=== PATIENT | female | born 1955 | race American Indian/Alaskan Native ===

== ENCOUNTER 2016-11-30 12:38 | Inpatient (IN) | payer MEDICAID ==
[2016-11-30] MEDS ORDERED: Sodium Chloride 0.9% 1,000 ML IV STA ×2 (13:24→16:09)
--- NOTE | 2016-11-30 13:26 | ED PDOC ---
Arrival/HPI - General Chief Complaint: Fever Time Seen by Provider: 11/30/16 13:23 Historian: Patient - History of Present Illness Narrative History of Present Illness (Text): 11/30/16 13:23 60 year old female with a past medical history that includes hypertension, diabetes, CAD, stents, and asthma, sent by PMD with reported fever at the office , generalized weakness, nausea, and lower back pain. Patient states she was here 3 weeks ago for kidney infection. Patient reports fever of 101 at PMD's office. She states she is "hardly peeing." Denies dysuria or hematuria. She also reports cough for the past week. PMD: Dr. Johnson Past Medical History - Provider Review Nursing Documentation Reviewed: Yes - Infectious Disease Hx of Infectious Diseases: None - Cardiac Hx Cardiac Disorders: Yes Hx Hypertension: Yes - Pulmonary Hx Asthma: Yes - Neurological Hx Paralysis: No - HEENT Hx HEENT Disorder: No - Hematological/Oncological Hx Blood Transfusion Reaction: No - Integumentary Hx Dermatological Disorder: No - Musculoskeletal/Rheumatological Hx Musculoskeletal Disorders: Yes - Gastrointestinal Hx Gastrointestinal Disorders: Yes Hx Gall Bladder Disease: Yes Other/Comment: Colon CA - Genitourinary/Gynecological Other/Comment: HYSTERECTOMY R/T FIBROIDS - Psychiatric Hx Emotional Abuse: No Hx Physical Abuse: No Hx Substance Use: Yes (Marijuana;LAST USE 3 MONTHS AGO) - Surgical History Hx Hysterectomy: Yes Other/Comment: X2 - Anesthesia Hx Anesthesia Reactions: No Hx Malignant Hyperthermia: No - Suicidal Assessment Feels Threatened In Home Enviroment: No Family/Social History - Physician Review Nursing Documentation Reviewed: Yes Family/Social History: Unknown Family HX Smoking Status: Never Smoked Hx Alcohol Use: Yes (PAST ETOH/LAST USE 3 YRS AGO) Hx Substance Use: Yes (Marijuana;LAST USE 3 MONTHS AGO) Allergies/Home Meds Allergies/Adverse Reactions: Allergies fluoxetine HCl [From Prozac] Allergy (Severe, Verified 11/30/16 12:59) SWELLING Penicillins Allergy (Severe, Verified 11/30/16 12:59) SWELLING tomato Allergy (Intermediate, Verified 11/30/16 12:59) HIVES Home Medications: Home Meds Medication Instructions Recorded Confirmed Calcium Carbonate [Calcium] 600 mg PO DAILY 06/25/15 11/03/16 Albuterol Sulfate [Proair 90 mcg IH Q6H 12/02/15 10/14/16 Respiclick] Ibuprofen [Motrin Tab] 800 mg PO Q8H PRN 12/02/15 10/14/16 Ketotifen Fumarate [Itchy Eye] 1 drop OU BID 12/02/15 10/14/16 Lisinopril [Zestril] 10 mg PO DAILY 12/02/15 10/14/16 Polyethylene Glycol 3350 [Miralax] 17 gm PO PRN PRN 12/02/15 10/14/16 Tramadol HCl [Ultram] 50 mg PO TID PRN 12/02/15 11/03/16 Docusate [Colace] 100 mg PO DAILY 11/03/16 11/03/16 Loratadine [Claritin] 1 tab PO DAILY 11/03/16 11/03/16 Ondansetron [Zofran Tab] 1 tab PO TID PRN 11/03/16 11/03/16 Promethazine DM [Phenergan DM 1 ml PO TID 11/03/16 11/03/16 Syrup] traZODone [Desyrel] 250 mg PO HS 11/03/16 11/03/16 Review of Systems - Physician Review All systems were reviewed & negative as marked: Yes - Review of Systems Constitutional: Fevers (101 today at PMD's office), Other (Generalized weakness) Respiratory: Cough (x 1 week) Gastrointestinal: Nausea Genitourinary Female: absent: Dysuria, Hematuria Musculoskeletal: Back Pain (lower) Physical Exam - Physical Exam Narrative Physical Exam (Text): Constitutional: No acute distress. Head: Normocephalic. Atraumatic. Eyes: PERRL. ENT: Moist mucous membranes. Neck: Supple. Cardiovascular: Regular rate. Chest: No tenderness. Respiratory: Clear to auscultation bilaterally. GI: Soft. Nontender. Nondistended. Back: Bilateral CVA tenderness R>L Musculoskeletal: No tenderness or swelling of extremities. Skin: No rash. Neurologic: Alert, no focal deficit. Vital Signs Reviewed: Yes Vital Signs Temp Pulse Resp BP Pulse Ox 11/30/16 13:04 98 F 69 18 88/50 L 98 Temperature: Afebrile Blood Pressure: Hypotensive Pulse: Regular Respiratory Rate: Normal Appearance: Positive for: Well-Appearing, Non-Toxic, Comfortable Pain Distress: None Mental Status: Positive for: Alert and Oriented X 3 Medical Decision Making ED Course and Treatment: Impression: 60 year old female with a past medical history that includes hypertension, diabetes, CAD, stents, and asthma, sent by PMD with reported fever at the office, generalized weakness, nausea, and lower back pain. Differential Diagnosis included but are not limited to: UTI vs dehydration vs sepsis Plan: -- CT Abdomen/Pelvis, EKG, Chest X-ray -- IV fluids -- Labs -- Reassess and disposition Prior Visits: Notes and results from previous visits were reviewed. Patient last seen in the ED on 11/02/16 for altered mental status and admitted for AMS. Progress Notes: EKG shows NSR at [address]/T wave changes, interpreted by me. Chest X-ray H[employer]ide [employer] Captain: Dr. Oswald Bain IMPRESSION: No active disease. CT Abdomen/Pelvis Homicide Squad Captain: Dr. Oswald Bain IMPRESSION: There is diverticulosis of the descending and sigmoid colon. No evidence of diverticulitis 11/30/16 15:56 BP 108/63. Patient with acute renal insufficiency, requires IV hydration, consult placed for nephrology Dr. Gerber at Dr. Johnson's recommendation. - Lab Interpretations Lab Results: 11/30/16 14:00 11/30/16 14:00 Lab Results 11/30/16 15:13: Urine Color Yellow, Urine Appearance Clear, Urine pH 6.0, Ur Specific Metcalf <= 1.005, Urine Protein Negative, Urine Glucose (UA) Negative, Urine Ketones Negative, Urine Blood Negative, Urine Nitrate Negative, Urine Bilirubin Negative, Urine Urobilinogen 0.2, Ur Leukocyte Esterase Small H, Urine RBC Negative, Urine WBC 5 - 10, Ur Epithelial Cells 6 - 8, Urine Bacteria Trace 11/30/16 14:45: PT 10.9, INR 1.01, APTT 27.6, pO2 201 H, VBG pH 7.31 L, VBG pCO2 57.0, VBG HCO3 28.7 H, VBG Total CO2 30.4 H, VBG O2 Sat (Calc) 99.5 H, VBG Base Excess 1.2, VBG Potassium 5.7 H, Sodium 130.0 L, Chloride 101.0, Glucose 99 , Lactate 1.1, FiO2 21.0, Venous Blood Potassium 5.7 H 11/30/16 14:00: WBC 5.5, RBC 4.00, Hgb 11.8 L, Hct 36.4, MCV 91.0, MCH 29.5, MCHC 32.4, RDW 14.1, Plt Count 233, MPV 10.0, Gran % 57.1, Lymph % (Auto) 28.2, [place] % (Auto) 10.1 H, Eos % (Auto) 4.2, Baso % (Auto) 0.4, Gran # 3.16, Lymph # 1.6, [place] # 0.6, Eos # 0.2, Baso # 0.02, Sodium 131 L, Chloride 96 L, Potassium 5.3 H, Carbon Dioxide 27, Anion Gap 13, BUN 26 H, Creatinine 2.5 H, Est GFR ( Amer) 24, Est GFR (Non-Af Amer) 20, Random Glucose 92, Calcium 9.9, Total Bilirubin 0.6, AST 23, ALT 10, Alkaline Phosphatase 74, Total Protein 7.3 , Albumin 3.9, Globulin 3.4, Albumin/Globulin Ratio 1.1, Lipase 188 - RAD Interpretation Radiology Orders: 11/30/16 13:24 CHEST PORTABLE [RAD] Stat 11/30/16 13:25 ABD & PELVIS W/O PO OR IV CONT [CT] Stat - Medication Orders Current Medication Orders: Sodium Chloride (Sodium Chloride 0.9%) 1,000 mls @ 100 mls/hr IV .Q10H STA Stop: 12/01/16 02:08 Discontinued Medications Sodium Chloride (Sodium Chloride 0.9%) 1,000 mls @ 999 mls/hr IV .Q1H1M STA Stop: 11/30/16 14:24 Last Admin: 11/30/16 14:20 Dose: 999 MLS/HR eMAR Start Stop Document 11/30/16 14:20 RAMILA (Rec: 11/30/16 15:26 RAMILA [id number]) Intravenous Solution Start Date 11/30/16 Start Time 14:20 End Date 11/30/16 End time 16:00 Total Infusion Time 100 - Scribe Statement The provider has reviewed the documentation as recorded by the Gus Carlton Provider Scribe Attestation: All medical record entries made by the Rosalieibdoron were at my direction and personally dictated by me. I have reviewed the chart and agree that the record accurately reflects my personal performance of the history, physical exam, medical decision making, and the department course for this patient. I have also personally directed, reviewed, and agree with the discharge instructions and disposition. Disposition/Present on Arrival - Present on Arrival Any Indicators Present on Arrival: No History of DVT/PE: No History of Uncontrolled Diabetes: No Urinary Catheter: No History of Decub. Ulcer: No History Surgical Site Infection Following: None - Disposition Have Diagnosis and Disposition been Completed?: Yes Diagnosis: Acute renal insufficiency Disposition: HOSPITALIZED Disposition Time: 15:56 Patient Plan: Admission Patient Problems: Current Active Problems Problem Status Diagnosed Abdominal pain Acute Cholecystitis Acute Mesenteric panniculitis Acute Condition: GUARDED
--- NOTE | 2016-11-30 14:03 | RAD ---
HISTORY: cough, fever COMPARISON: 11/02/2016 FINDINGS: LUNGS: No active pulmonary disease. PLEURA: No significant pleural effusion identified, no pneumothorax apparent. CARDIOVASCULAR: Normal. OSSEOUS STRUCTURES: No significant abnormalities. VISUALIZED UPPER ABDOMEN: Normal. OTHER FINDINGS: Aortic tortuosity IMPRESSION: No active disease.
[2016-11-30 14:10] LABS: ADD MANUAL DIFF? NO
[2016-11-30 14:13] LABS: BASO # 0.02 K/mm3 (0.0-2.0); BASO % 0.4 % (0.0-3.0); EOS # 0.2 (0.0-0.7); EOS % 4.2 % (1.5-5.0); GRAN # 3.16 (1.4-6.5); GRAN % 57.1 % (50.0-68.0); HEMATOCRIT 36.4 % (36.0-48.0); LYMPH # 1.6 (1.2-3.4); LYMPH % 28.2 % (22.0-35.0); MEAN CORPUSCULAR HEMOGLOBIN 29.5 pg (25.0-35.0); MEAN CORPUSCULAR HGB CONC 32.4 g/dl (31.0-37.0); MONO # 0.6 (0.1-0.6); MONO % 10.1 % (1.0-6.0); PLATELET COUNT 233 10^3/uL (120.0-450.0); RED CELL DISTRIBUTION WIDTH 14.1 % (11.5-14.5); WHITE BLOOD COUNT 5.5 10^3/ul (4.5-11.0)
[2016-11-30 14:23] LABS: ALB/GLOB RATIO 1.1 (1.1-1.8); BILIRUBIN,TOTAL 0.6 mg/dL (0.2-1.3); CALCIUM 9.9 mg/dL (8.4-10.5); POTASSIUM 5.3 mmol/L (3.6-5.0); TOTAL PROTEIN 7.3 g/dL (5.8-8.3)
[2016-11-30 15:03] LABS: VENOUS BLOOD GAS BASE EXCESS 1.2 mmol/L (0.0-2.0); VENOUS BLOOD PH 7.31 (7.32-7.43)
[2016-11-30 15:24] LABS: URINE BILIRUBIN NEGATIVE (NEGATIVE); URINE BLOOD NEGATIVE (NEGATIVE); URINE GLUCOSE (UA) NEGATIVE (NEGATIVE); URINE KETONE NEGATIVE (NEGATIVE); URINE LEUKOCYTE ESTERASE SMALL Leu/uL (NEGATIVE); URINE PROTEIN NEGATIVE mg/dL (<30 mg/dL); URINE UROBILINOGEN 0.2 E.U./dL (<1 E.U./dL)
[2016-11-30 15:25] LABS: INR 1.01 (0.93-1.08); PARTIAL THROMBOPLASTIN TIME 27.6 Seconds (23.7-30.8)
[2016-11-30 15:25] LABS: URINE APPEARANCE CLEAR (CLEAR); URINE COLOR YELLOW (YELLOW)
[2016-11-30 15:28] LABS: URINE BACTERIA TRACE (NEG); URINE RBC NEGATIVE /hpf (0-2)
--- NOTE | 2016-11-30 15:58 | CT ---
PROCEDURE: CT Abdomen and Pelvis without intravenous contrast HISTORY: flank pain, fever COMPARISON: None. TECHNIQUE: Without contrast. Contrast Dose: Radiation dose: Total exam DLP = 742 mGy-cm. FINDINGS: LOWER THORAX: Unremarkable. LIVER: Unremarkable. No gross lesion or ductal dilatation. GALLBLADDER AND BILE DUCTS: Unremarkable. PANCREAS: Unremarkable. No gross lesion or ductal dilatation. SPLEEN: Unremarkable. ADRENALS: Unremarkable. No mass. KIDNEYS AND URETERS: Unremarkable. No hydronephrosis. No solid mass. VASCULATURE: Unremarkable. No aortic aneurysm. BOWEL: Unremarkable. No obstruction. No gross mural thickening. There is diverticulosis in the descending and sigmoid colon without diverticulitis APPENDIX: Unremarkable. Normal appendix. PERITONEUM: Unremarkable. No free fluid. No free air. LYMPH NODES: Unremarkable. No enlarged lymph nodes. BLADDER: Unremarkable. REPRODUCTIVE: Unremarkable. BONES: No acute fracture. OTHER FINDINGS: None. IMPRESSION: There is diverticulosis of the descending and sigmoid colon. No evidence of diverticulitis
[2016-11-30] MEDS ORDERED: Morphine 2 mg/ml ISec IVP STA (16:56)
--- NOTE | 2016-11-30 17:23 | CARD ---
APPROVED REPORT EKG Measurement Heart [id number] <Conclusion> Normal sinus rhythm Normal ECG
[2016-11-30] MEDS ORDERED: Morphine 2 mg/ml ISec IVP PRN (18:03)
[2016-11-30] MEDS ORDERED: Sod Polystyrene Sulf 15 gm/60 ml Oral Susp PO ONE (19:08)
[2016-11-30] MEDS ORDERED: Promethazine DM 6.25 mg-15 mg/5 ml Syrup PO PRN (20:11)
[2016-11-30] MEDS: Insulin Reg-MEDIUM-Coverage SC SCH (22:06)
[2016-11-30 22:35] VITALS: BMI 30.6
[2016-11-30] MEDS ORDERED: Influenza Vaccine 45 MCG/0.5 ml IM ONE (22:35)
[2016-11-30] MEDS ORDERED: Pneumococcal 23-Valent Vaccine IM ONE (22:35)
[2016-11-30] MEDS ORDERED: Albuterol 0.083% Inhal Sol (2.5 mg/3 mL) UD IH PRN (23:30)
[2016-12-01 07:27] LABS: ADD MANUAL DIFF? NO
[2016-12-01 07:31] LABS: BASO # 0.02 K/mm3 (0.0-2.0); BASO % 0.4 % (0.0-3.0); EOS # 0.3 (0.0-0.7); EOS % 6.3 % (1.5-5.0); GRAN # 1.92 (1.4-6.5); GRAN % 37.6 % (50.0-68.0); HEMATOCRIT 33.3 % (36.0-48.0); LYMPH # 2.4 (1.2-3.4); LYMPH % 47.1 % (22.0-35.0); MEAN CELL VOLUME 91.7 fL (80.0-105.0); MEAN CORPUSCULAR HEMOGLOBIN 29.5 pg (25.0-35.0); MEAN CORPUSCULAR HGB CONC 32.1 g/dl (31.0-37.0); MEAN PLATELET VOLUME 9.7 fl (7.0-11.0); MONO # 0.4 (0.1-0.6); MONO % 8.6 % (1.0-6.0); PLATELET COUNT 212 10^3/uL (120.0-450.0); RED CELL DISTRIBUTION WIDTH 14.2 % (11.5-14.5); WHITE BLOOD COUNT 5.1 10^3/ul (4.5-11.0)
[2016-12-01 07:47] LABS: BILIRUBIN,TOTAL 0.4 mg/dL (0.2-1.3); CALCIUM 8.8 mg/dL (8.4-10.5); POTASSIUM 4.8 mmol/L (3.6-5.0)
[2016-12-01] MEDS ORDERED: Sodium Chloride 0.9% 1,000 ML IV SCH ×2 (07:51→16:32)
--- NOTE | 2016-12-01 08:02 | HP ---
I saw the patient in my office today. She was brought down by help of her son. She can barely walk by herself. She is very lethargic, very weakened, exhausted, not herself. Slowly to respond to questions. She had a 101 temperature my office; tells me she is not urinating much at all, coughing a lot , feels very sick. The son very concerned, as she has been very lethargic. PAST MEDICAL HISTORY: Hypertension, diabetes, disease, asthma, stents. She had gallbladder disease. She had colon cancer, hysterectomy, fibroids. She smokes marijuana; last use was 3 months ago. She had a x 2. There is hypertension in the family. Never smoked cigarettes. Last drink was 3 years ago. She does smoke marijuana ; last use was 3 months ago. SHE HAS ALLERGIES TO PROZAC, PENICILLINS, TOMATOES. She is on calcium, albuterol, ProAir, Motrin, itchy eye solution, Zestril, MiraLax, Ultram, Colace, Claritin, Zofran, Phenergan, Desyrel, tramadol. On review of systems, a little blurred vision, no acute hearing loss. She had a headache. She sweating. No sore throat, but the throat is dry. No neck pain. She looks toxic and not comfortable to me. She is breathing a little quicker than usual, maybe in the low 20s. She has a septic look. No chest pain or palpitations. There is a cough, but no shortness of breath, but she needed help walking down the wilks. She is very weak. ABDOMEN: Soft, nontender, positive bowel sounds. , but weak. She tells me her skin, for the most part, is intact. She has 98 temp in the ER. It was 101 in my office twice , pulse 18, respiratory rate was 24 in the office, 88/50 blood pressure; got about 90/60 in my office, and a 98 pulse ox. HEAD: Atraumatic, normocephalic. Eyes: Sunken, eyelids are down. She looks half awake, very lethargic. Looks distressed. Throat: Dry. Pupils equal, reactive to light. NECK: Supple. HEART: Regular rate. LUNGS: Decreased breath sounds, but clear to auscultation. ABDOMEN: Soft, nontender, positive bowel sounds. EXTREMITIES: Have no edema. SKIN: For the most part, is intact. She is lethargic to me. She is alert, answers questions, but looks very exhausted, lethargic. EXTREMITIES: Have no edema. On the blood tests,. She had a CAT scan of the abdomen and pelvis which showed diverticulosis. Chest x-ray which was good. An EKG which showed normal. The urine with small leukocytes, trace bacteria. She has a 131 sodium, potassium is 5.3, BUN is 26, creatinine 2.5, elevated for her. GFR is 20. Sugar is 92, calcium is 9.1, total bili is 0.6. AST is 23, ALT is 10, alk phos 74, total protein 7.3, albumin 3.0,. INR is 1.01. She has a 5.5 white count, 1.8 hemoglobin, 36.4 hematocrit, with 233 platelets. She has been put on IV fluids a 100 mL/hour, Kayexalate 15 g x 1 dose. She comes across as being very lethargic, acute renal changes and renal insufficiency. She will have a renal doctor consult, she will go to a med/surg bed. IV fluids. She will have a blood sugar coverage. Hopefully, she will do very well, and will check her labs tomorrow, and hopefully, they will improve with the IV fluids. Augie Johnson DO cc: [id number] TT: 11/30/2016 20:37:58 jn 12/01/2016 07:01:46 NIYA
--- NOTE | 2016-12-01 09:21 | PN ---
DATE: 12/01/2016 I saw her resting in bed. She is a little bit better than yesterday, but not much; still very tired and weak. She is not hungry. The IV fluids were off for a little bit, we have to put them back on. She is on DuoNeb, Brovana, Caltrate, Colace, Desyrel, Ecotrin, folic acid, insulin coverage, MiraLax, Phenergan, cough syrup once, Pulmicort, Singulair, tramadol, Zofran, Zoloft, and Kayexalate once. She was on Zestril. I stopped it. The blood pressure was kind of low. She just feels very weak and lethargic, but she is improving from yesterday. She has a 97.6 temp, 65 pulse, 114/61 blood pressure, 17 respiratory rate, 99% O2 sat on room air. HEAD: Atraumatic, normocephalic. HEART: Regular rate. LUNGS: Clear to auscultation. ABDOMEN: Soft, obese, nontender. EXTREMITIES: No edema. She has a 5.1 white count, 10.7 hemoglobin, 33.3 hematocrit, with the 212 platelets. INR is 1.01. A 136 sodium, better; potassium 4.8, better. BUN is 19, better; creatinine 1.5, still high but better . GFR is up to 35. Sugar is 85, calcium is 8.8, total bili is 0.4. AST is 18, ALT is 25, alk phos 61, total protein 6, albumin is 3.1. Urine was small. She is being seen by renal. They have not seen her yet today. She has a CAT scan of the abdomen and pelvis which showed just diverticulosis. Chest x-ray showed no active disease. She is here for renal insufficiency, lethargy. Will get her out of bed to chair, make sure she eats, get physical therapy involved. Will see what Dr. Gerber, the renal doctor, has to add to the picture. Augie Johnson DO cc: [id number] TT: 12/01/2016 09:20:02 Confirmation # [id number] Dictation # [id number] jn
[2016-12-01] MEDS ORDERED: Promethazine DM 6.25 mg-15 mg/5 ml Syrup PO SCH (10:00)
[2016-12-01] MEDS ORDERED: POLYETHYLENE GLYCOL 3350 17 GM/Dose PACKET PO PRN (10:00)
[2016-12-01] MEDS: Insulin Reg-MEDIUM-Coverage SC SCH ×4 (11:27→21:43)
[2016-12-01] MEDS ORDERED: Sodium Chloride 0.9% 1,000 ML IV STA (17:38)
[2016-12-01] MEDS: Sodium Chloride 0.9% 1,000 ML IV SCH (18:43)
--- NOTE | 2016-12-01 19:37 | CON ---
DATE: 12/01/2016 CONSULTATION REQUESTED BY: Dr. Augie Johnson. REASON FOR CONSULTATION: Acute renal failure, hyponatremia, hyperkalemia, and anemia. HISTORY OF PRESENT ILLNESS: The patient is previously unknown to me. This 60-year-old female was re ferred to [facility]'s Emergency Department by her primary care physician after being not ed to have a fever of 101 with generalized weakness, nausea and low back pain. Of note, the patient was just discharged from subacute rehabilitation. She was recently hospitalized here at [facility] in the beginning of November for an alteration in her mental status after she had started ant ibiotics for cholecystitis. During that hospitalization, she had acute kidney injury that was deemed to be secondary to a combination of inadequate oral intake with lisinopril as well as ibuprofen. Promise sal was also noted to have staphylococcal bacteremia as well. On a renal ultrasound during that hospit alization found her left kidney to be atrophic. On arrival to the ED, the patient was noted to have a blood pressure of 88/50 with a heart rate of 69. She was afebrile. Laboratory studies revealed hyp onatremia of 131, hyperkalemia at 5.3 and a BUN/creatinine of 26/2.5. Of note, 3 weeks earlier, her BUN/creatinine had been 6/0.9 with a normal sodium and a normal potassium. During that prior hospita lization, her blood pressure was approximately 130/80. Other labs on admission revealed normocytic a nemia with a normal white blood cell count and no neutrophilia. Lactic acid level was unremarkable. The patient had a CT scan of her abdomen and pelvis in the ED, which did not reveal any pathology ot her than diverticulosis, but without any diverticulitis. Chest x-ray did not reveal any pathology ei ther. She was subsequently admitted for further evaluation and management. In reviewing the medicat ions she had been taking prior to admission, it is noted that once again she was taking lisinopril an d ibuprofen and she admitted having decreased appetite and minimal oral intake for several days as we ll as diarrhea for the one day prior to admission. She continues to complain of low back pain, but d enies any nausea or vomiting. She denies any decrease in her urine output, but states that her urine has been darker at home. CPK has not yet been done, but a urinalysis did not reveal any blood prese nt and in fact, the urinalysis was bland. REVIEW OF SYSTEMS: Taken across all 10 systems and 14 points and was negative unless stated otherwis e above. PAST MEDICAL HISTORY: Significant for hypertension, history of marijuana use, recent hospitalization for cholecystitis that was treated medically, recent hospitalization for an alteration in her mental status in the setting of relative hypotension with acute kidney injury, hyperkalemia, lactic acidosi s that improved with intravenous fluids and withholding her lisinopril as well as her ibuprofen, type 2 diabetes mellitus, coronary artery disease with history of percutaneous coronary intervention and stents, asthma, prior history of colon cancer and a hysterectomy for fibroids. She has a prior histo ry of section as well. MEDICATIONS: The patient was taking prior to admission included trazodone 250 mg orally nightly, Ult razia 50 mg orally 3 times a day, Zoloft 50 mg orally daily, MiraLax 17 grams orally daily as needed, Z ofran 4 mg orally dissolving tablets 3 times a day as needed, Singulair 10 mg orally daily, Claritin 10 mg orally daily, lisinopril 10 mg orally daily, Synthroid 25 mcg orally daily, ibuprofen 800 mg or ally every 8 hours as needed, Advair Diskus 250/50 twice daily, Colace 100 mg orally daily, Cipro 500 mg orally twice daily, calcium carbonate 600 mg orally daily, aspirin 81 mg orally daily, albuterol 90 mcg inhaled every 6 hours as needed. ALLERGIES: THE PATIENT WAS ALLERGIC TO PROZAC, PENICILLINS, WELL TOMATOES. SOCIAL HISTORY: Notable for occasional marijuana use, last 3 months ago. There is no tobacco use no r any alcohol use or other illicit drug use. FAMILY HISTORY: Negative for any inheritable renal or electrolyte disorders and was otherwise noncon tributory. PHYSICAL EXAMINATION: GENERAL APPEARANCE: I saw the patient sitting in her bed at a 30-degree angle. She was somewhat tayler mulous and complaining of back pain, but there were no other complaints. VITAL SIGNS: Blood pressure is 98/64, heart rate 60, oral temperature is 97.8, respiratory rate is 1 8, oxygen saturation 98% on room air. I's and O's were 2120/500. HEENT: The patient was normocephalic, atraumatic without any sinus tenderness. Conjunctivae were ne ither pale nor were they icteric. NECK: Supple with a full range of motion. Trachea was midline and freely movable. Thyroid was nont raymond, nor enlarged. There was no jugular venous distention. CARDIAC: Had a regular rate and rhythm without any rubs or gallops. There were no heaves. ABDOMEN: Soft, mildly distended, but nontender on palpation. There was no rebounding, guarding or r igidity. GENITOURINARY: Notable for some minimal right CVA tenderness. There was no suprapubic tenderness. EXTREMITIES: Had trace to 1+ sacral edema. NEUROLOGIC: The patient was nonfocal. VASCULAR: No bruits. SKIN: Intact. LABORATORY STUDIES: White count is 5.1, H and H is 10.7/33.3 with a platelet count of 212,000. Ther e are 38% neutrophils, 47% lymphocytes, 9% monocytes, and 6% eosinophils. Sodium today is 136, potas sium 4.8, chloride 105, bicarbonate 25, BUN/creatinine is 19/1.5 with a glucose of 85. Corrected christel cium is 9.6. Urinalysis was yellow, clear with a pH of 6.0, specific gravity of less than 1.005, neg ative protein, negative blood. Imaging is as stated above. Chest x-ray did not reveal any acute pat hology. IMPRESSION AND PLAN: The patient is a 60-year-old female with a known history of hypertension, asthm a, lymphoma fibroids for which she has had a hysterectomy, chronic obstructive pulmonary disease, cho lecystitis treated medically, atrophic kidney, but with preserved renal function, recent hospitalizat ion for alteration in her mental status with acute kidney injury and lactic acidosis that resolved wi th intravenous fluids and holding her lisinopril as well as ibuprofen, admitted with fevers and gener alized weakness. She was noted to have acute kidney injury on presentation. Of note, the patient wa s also hypotensive with hyponatremia and hyperkalemia. Hyponatremia and hyperkalemia could very well have been secondary to her acute kidney injury. The acute kidney injury may in fact have been cause d by inadequate oral intake at home, which she admits to plus one day of diarrhea plus use of lisinop ril and ibuprofen prior to admission. The combination of hyponatremia and hyperkalemia, however, in the setting of hypotension also raises the possibility of adrenal insufficiency. The patient does florian ve a prior history of lymphoma and we will check an a.m. cortisol in the morning. Additionally, we w ill check an LDH on this patient as well. Her total protein versus albumin was mildly increased on p resentation. Although, one would think this could be due to polyclonal gammopathy of sepsis. The fa ct is that the patient had a normal white blood cell count without any neutrophilia nor any bandemia, so in the differential diagnosis would perhaps be a tumor fever as well, such as if lymphoma had rec urred and thus, with her next labs, we will also check serum protein electrophoresis, serum immunofix ation and serum free light chain assay as well. The patient does have eosinophilia that has been karo adily increasing and neoplasm can certainly result in eosinophilia, but so can asthma, which the bartolome ent has a history as well. Since the patient did report dark urine prior to admission, I will check a CPK as well, although I suspect that the dark urine represented dehydration and nothing else. Cert ainly, her lisinopril and ibuprofen will be on hold. Going forward, I would not use lisinopril in th is patient prone to inadequate oral intake given the fact that she has had 2 episodes of acute kidney injury within the last month or so. If needed for antihypertensive therapy, I would use amlodipine 2.5 mg daily. I would also not use ibuprofen for the same reason that she is prone to inadequate ora l intake and Tylenol only as an analgesic. From my perspective, the patient can be discharged with th e rest of the workup occurring as an outpatient. For now, however, given the fact that the patient d oes remain somewhat hypotensive and since her creatinine is not yet back to baseline of less than 1, I would continue intravenous fluids while she remains hospitalized with normal saline at 75 mL per ho ur. I will be following this complex patient closely for the above complex medical problems. I thank you very much for the courtesy of this consultation. Yohan Gerber MD cc: [id number] TT: 12/01/2016 19:37:11 Confirmation # [id number] Dictation # [id number] rn
[2016-12-01] MEDS: Budesonide 0.5 mg/2 ml Inhal Susp UD IH SCH (22:12)
[2016-12-01] MEDS: Arformoterol 15 mcg/2 ml Inh Sol IH SCH (22:12)
[2016-12-02 07:13] LABS: HEMATOCRIT 31.5 % (36.0-48.0); MEAN CELL VOLUME 91.8 fL (80.0-105.0); MEAN CORPUSCULAR HEMOGLOBIN 29.2 pg (25.0-35.0); MEAN CORPUSCULAR HGB CONC 31.7 g/dl (31.0-37.0); MEAN PLATELET VOLUME 9.4 fl (7.0-11.0); RED CELL DISTRIBUTION WIDTH 14.3 % (11.5-14.5); WHITE BLOOD COUNT 4.3 10^3/ul (4.5-11.0)
[2016-12-02] MEDS: Sodium Chloride 0.9% 1,000 ML IV SCH (07:25)
[2016-12-02 07:26] LABS: ALB/GLOB RATIO 0.9 (1.1-1.8); ALKALINE PHOSPHATASE 57 U/L (38-133); ALT/SGPT 13 U/L (7-56); AST/SGOT 18 U/L (15-39); BILIRUBIN,TOTAL 0.3 mg/dL (0.2-1.3); BLOOD UREA NITROGEN 11 mg/dL (7-21); CALCIUM 8.4 mg/dL (8.4-10.5); CARBON DIOXIDE 23 mmol/L (21-33); CHLORIDE 112 mmol/L (98-107); GFR AFRICAN-AMERICAN > 60; GLUCOSE,RANDOM 83 mg/dL (70-110); POTASSIUM 4.9 mmol/L (3.6-5.0); SODIUM 139 mmol/L (132-148); TOTAL PROTEIN 5.7 g/dL (5.8-8.3)
[2016-12-02] MEDS: Insulin Reg-MEDIUM-Coverage SC SCH ×2 (08:08→13:13)
[2016-12-02] MEDS ORDERED: Arformoterol 15 mcg/2 ml Inh Sol IH SCH (08:21)
[2016-12-02] MEDS ORDERED: Budesonide 0.5 mg/2 ml Inhal Susp UD IH SCH (08:22)
[2016-12-02 08:47] VITALS: BP 90/62; PULSE 59; RESP 18; TEMP 97.8; O2SAT 95
--- NOTE | 2016-12-02 10:02 | PN ---
DATE: 12/02/2016 I saw the patient resting in bed. She is a little bit better than when she came in, but still feels very lightheaded. PHYSICAL EXAMINATION: VITAL SIGNS: She has a 97.8 temp, 59 pulse, 90/62 blood pressure (it was 80/50 earlier this morning; she is on a lot of IV fluids), 18 respiratory rate, 95% O2 sat on room air. HEENT: Head is atraumatic, normocephalic. Her face looks a lot better. She looks a lot better, but she is just lightheaded and weak. HEART: Regular rate. LUNGS: Clear to auscultation. ABDOMEN: Soft. EXTREMITIES: No edema. MEDICATIONS: She is currently on albuterol, Brovana, Caltrate, Colace, Desyrel, Ecotrin, folic acid, insulin, MiraLax, Phenergan, Pulmicort, Singulair, IV fluids at 125 mL an hour (although this mornin g they were bumped up to 150 for 3 hours), Ultram, Zofran and Zoloft. LABORATORY DATA: She has a white count of 4.3, hemoglobin 10, hematocrit 31.5, platelets 213. She h as a 139 sodium, potassium 4.9, BUN is 11, creatinine 0.9, GFR is greater than 60, sugar is 183 - all good. Calcium is 8.4, total bili is 0.3, AST is 18, ALT is 13, alk phos is 67, lactate dehydrogenas e is 235, total protein is 5.7, albumin is 2.9. She is being seen by renal. I am hoping they can help me solve her dehydration/blood pressure issue of being low. We solved the BUN and creatinine issue of renal insufficiency and failure when she cam e in. Now getting her blood pressure up to a good rate and then we can discharge her. Hopefully by t omorrow or in the next 24 hours, we can do that. I will discuss this with renal. She is here for dehydration, acute renal failure, renal insufficienc y, lethargy, hypotension. Augie Johnson DO cc: :43:25 [id number] TT: 12/02/2016 10:01:50 Confirmation # [id number] Dictation # [id number]
[2016-12-02 11:38] LABS: CORTISOL AM 6.2 ug/dL (4.46-22.7)
[2016-12-03 04:54] LABS: TOTAL PROTEIN, SERUM 5.1 g/dL (6.1-8.1)
[2016-12-05 11:42] LABS: BETA 1 GLOBULIN 0.3 g/dL (0.4-0.6); BETA 2 GLOBULIN 0.4 g/dL (0.2-0.5); GAMMA GLOBULIN 0.7 g/dL (0.8-1.7)
[2016-12-05 18:06] LABS: FREE KAPPA SERUM 24.1 mg/L (3.3-19.4)
== END 2016-12-02 18:50 | disposition home or self-care (01) | DRG 316 ==
LOC: ED 12:38 → ERH 16:08 → 3RNO 18:35
PROVIDERS: ADMIT Family Medicine; ATTEND Family Medicine
DX: N17.9 Acute kidney failure, unspecified (principal); E86.0 Dehydration; E87.2 Acidosis; E87.1 Hypo-osmolality and hyponatremia; K81.9 Cholecystitis, unspecified; E87.5 Hyperkalemia; J44.9 Chronic obstructive pulmonary disease, unspecified; E11.8 Type 2 diabetes mellitus with unspecified complications; I10 Essential (primary) hypertension; F12.90 Cannabis use, unspecified, uncomplicated; K57.30 Diverticulosis of large intestine without perforation or abscess without bleeding; J45.909 Unspecified asthma, uncomplicated; I25.10 Atherosclerotic heart disease of native coronary artery without angina pectoris; D64.9 Anemia, unspecified; Z85.038 Personal history of other malignant neoplasm of large intestine; Z95.5 Presence of coronary angioplasty implant and graft; Z88.0 Allergy status to penicillin; Z85.72 Personal history of non-Hodgkin lymphomas

== ENCOUNTER 2017-01-25 12:57 | Observation (INO) | payer MEDICAID ==
--- NOTE | 2017-01-25 13:54 | ED PDOC ---
Arrival/HPI - General Chief Complaint: Chest Pain Time Seen by Provider: 01/25/17 13:30 Historian: Patient - History of Present Illness Narrative History of Present Illness (Text): 01/25/17 13:431 A 60 year old female, whose past medical history includes hypertension, diabetes , CAD, stents, and asthma, is sent to the emergency department by PMD for complaining of chest pain, chest palpations and dyspnea of exertion since this morning at 0200. Patient notes a productive cough with green sputum for the past week. Patient says she has been constipated, has urinary frequency and feel some dizziness. She notes a fever of 103.0 3 days ago. Patient denies any nausea, vomiting, dysuria, lower extremity swelling or other complaints at this time. PMD: Dr. Johnson Time/Duration: Other (12 hours) Symptom Onset: Sudden Symptom Course: Unchanged Quality: Other Activities at Onset: Light Context: Exertion, Home Past Medical History - Infectious Disease Hx of Infectious Diseases: None - Reproductive Menopause: Yes - Cardiac Hx Cardiac Disorders: Yes Hx Hypertension: Yes - Pulmonary Hx Asthma: Yes - Neurological HX Cerebrovascular Accident: Yes (2012) - HEENT Hx HEENT Disorder: Yes (eyeglasses) Hx Cataracts: Yes (b/l cataract sx) - Hematological/Oncological Other/Comment: pt denies colon cancer - Integumentary Hx Dermatological Disorder: No - Musculoskeletal/Rheumatological Hx Arthritis: Yes - Gastrointestinal Hx Gastrointestinal Disorders: Yes Hx Gall Bladder Disease: Yes - Genitourinary/Gynecological Other/Comment: HYSTERECTOMY R/T FIBROIDS - Psychiatric Hx Depression: Yes Hx Emotional Abuse: No Hx Physical Abuse: No Hx Substance Use: Yes (quit 3 months ago marijuana) - Surgical History Hx Hysterectomy: Yes Other/Comment: X2, t and a, colon polyps removed 2015, exc L axillary mass x2 6 yrs ago - Anesthesia Hx Anesthesia: Yes Hx Anesthesia Reactions: No Hx Malignant Hyperthermia: No - Suicidal Assessment Feels Threatened In Home Enviroment: No Family/Social History Family/Social History: No Known Family HX Smoking Status: Never Smoked Hx Alcohol Use: Yes (quit 3 yrs ago) Hx Substance Use: Yes (quit 3 months ago marijuana) Allergies/Home Meds Allergies/Adverse Reactions: Allergies fluoxetine HCl [From Prozac] Allergy (Severe, Verified 01/25/17 13:43) SWELLING Penicillins Allergy (Severe, Verified 01/25/17 13:43) SWELLING tomato Allergy (Intermediate, Verified 01/25/17 13:43) HIVES Home Medications: Home Meds Medication Instructions Recorded Confirmed Calcium Carbonate [Calcium] 600 mg PO DAILY 06/25/15 01/25/17 Albuterol Sulfate [Proair 90 mcg IH Q6H 12/02/15 01/25/17 Respiclick] Ibuprofen [Motrin Tab] 800 mg PO Q8H PRN 12/02/15 01/25/17 Ketotifen Fumarate [Itchy Eye] 1 drop OU BID 12/02/15 01/25/17 Polyethylene Glycol 3350 [Miralax] 17 gm PO PRN PRN 12/02/15 01/25/17 Tramadol HCl [Ultram] 50 mg PO TID PRN 12/02/15 01/25/17 Docusate [Colace] 100 mg PO DAILY 11/03/16 01/25/17 Loratadine [Claritin] 1 tab PO DAILY 11/03/16 01/25/17 Ondansetron [Zofran Tab] 1 tab PO TID PRN 11/03/16 01/25/17 Promethazine DM [Phenergan DM 1 ml PO TID 11/03/16 01/25/17 Syrup] traZODone [Desyrel] 250 mg PO HS 11/03/16 01/25/17 Levothyroxine [Synthroid] 25 mcg PO DAILY 11/30/16 01/25/17 Review of Systems - Physician Review All systems were reviewed & negative as marked: Yes - Review of Systems Constitutional: Fevers Cardiovascular: Chest Pain, BOTELLO Gastrointestinal: Constipation. absent: Nausea, Vomiting Genitourinary Female: Frequency Neurological: Dizziness Physical Exam Vital Signs Reviewed: Yes Vital Signs Temp Pulse Resp BP Pulse Ox 01/25/17 17:09 75 18 120/80 98 01/25/17 15:53 81 18 117/62 98 01/25/17 15:42 69 18 123/68 96 01/25/17 14:23 75 18 125/71 96 01/25/17 13:09 98.4 F 88 20 127/73 95 Temperature: Afebrile Blood Pressure: Normal Pulse: Regular Respiratory Rate: Normal Appearance: Positive for: Well-Appearing, Non-Toxic, Comfortable Pain Distress: None Mental Status: Positive for: Alert and Oriented X 3 - Systems Exam Head: Present: Atraumatic, Normocephalic Pupils: Present: PERRL Conjunctiva: Present: Normal Mouth: Present: Moist Mucous Membranes Pharnyx: Present: Normal. No: ERYTHEMA, EXUDATE Neck: Present: Normal Range of Motion Respiratory/Chest: Present: Wheezes (mild). No: Good Air Exchange (slightly diminished air entry), Respiratory Distress, Accessory Muscle Use Cardiovascular: Present: Regular Rate and Rhythm, Normal S1, S2. No: Murmurs Abdomen: Present: Normal Bowel Sounds. No: Tenderness, Distention, Peritoneal Signs Back: Present: Normal Inspection Upper Extremity: Present: Normal Inspection. No: Cyanosis, Edema Lower Extremity: Present: Normal Inspection. No: Edema Neurological: Present: GCS=15, CN II-XII Intact, Speech Normal Skin: Present: Warm, Dry, Normal Color. No: Rashes Psychiatric: Present: Alert, Oriented x 3, Normal Insight, Normal Concentration Medical Decision Making ED Course and Treatment: 01/25/17 13:31 Impression: A 61 year old female with chest pain and dyspena on exertion. Differential Diagnosis included but are not limited to: ACS vs. COPD vs. CHF vs pneumonia Plan: -- EKG -- Chest X-ray -- Labs -- Urinalysis -- Reassess and disposition Prior Visits: Notes and results from previous visits were reviewed. The patient last presented to the emergency department on 11/30/16 for evaluation of a fever, generalized weakness, nausea and lower back pain. Progress Notes: EKG: Ordered, reviewed, and independently interpreted the EKG. Rate : 89 BPM Rhythm : NSR Interpretation : Left axis deviation, no ST?T changes, normal intervals 01/25/17 14:47 Chest X-ray: Creator : Radha Washington MD COMPARISON: Chest x-ray performed 11/30/16 FINDINGS:Examination limited by habitus. LUNGS:Bibasilar atelectasis. Please note that chest x-ray has limited sensitivity for the detection of pulmonary masses. PLEURA: No significant pleural effusion identified. No definite pneumothorax . CARDIOVASCULAR: Heart size appears top normal. Atherosclerotic calcifications. OSSEOUS STRUCTURES: No acute osseous abnormality identified. VISUALIZED UPPER ABDOMEN:Unremarkable. OTHER FINDINGS: None. IMPRESSION: Mild bibasilar atelectasis. 01/25/17 18:42 Patient with noted history. EKG and CXR are unremarkable. Exam with mild wheezing - given steroids and nebs with mild improvement but continuing to complaining of chest pain still. Labs with mild d-dimer elevation but otherwise unremarkable. CTA negative for PE. Discussed with Dr. Johnson who will place on his service for observation on tele for further eval and workup. - Lab Interpretations Lab Results: 01/25/17 13:49 01/25/17 14:53 Lab Results 01/25/17 15:00: Urine Color Yellow, Urine Appearance Clear, Urine pH 7.0, Ur Specific [place] 1.010, Urine Protein Negative, Urine Glucose (UA) Negative, Urine Ketones Negative, Urine Blood Negative, Urine Nitrate Negative, Urine Bilirubin Negative, Urine Urobilinogen 0.2, Ur Leukocyte Esterase Negative 01/25/17 14:53: Sodium 133, Potassium 4.3, Chloride 101, Carbon Dioxide 29, Anion Gap 7 L, BUN 14, Creatinine 1.0, Est GFR ( Amer) > 60, Est GFR (Non -Af Amer) 56, Random Glucose 98, Calcium 9.2, Magnesium 2.0, Total Bilirubin 0.9 , AST 30, ALT 17, Alkaline Phosphatase 56, Lactate Dehydrogenase 202 L, Total Creatine Kinase 44, Troponin I < 0.01, NT-Pro-B Natriuret Pep 144, Total Protein 6.8, Albumin 3.6, Globulin 3.2, Albumin/Globulin Ratio 1.1, Lipase 84 01/25/17 13:49: PT 10.1, INR 0.94, APTT 26.0, D-Dimer, Quantitative 0.73 H 01/25/17 13:49: WBC 6.1 D, RBC 4.11, Hgb 12.0, Hct 36.5, MCV 88.8, MCH 29.2, MCHC 32.9, RDW 14.5, Plt Count 365, MPV 9.3, Gran % 55.9, Lymph % (Auto) 32.6, [place] % (Auto) 7.4 H, Eos % (Auto) 3.8, Baso % (Auto) 0.3, Gran # 3.41, Lymph # 2.0, [place] # 0.5, Eos # 0.2, Baso # 0.02 I have reviewed the lab results: Yes - RAD Interpretation Radiology Orders: 01/25/17 13:49 CHEST PORTABLE [RAD] Stat 01/25/17 14:47 ANGIO CHEST PE PROTOCOL [CT] Stat - Medication Orders Current Medication Orders: Levofloxacin/Dextrose (Levaquin 750mg) 750 mg IVPB ONCE STA Stop: 01/25/17 18:42 Discontinued Medications Guaifenesin (Robitussin) 400 mg PO ONCE STA Stop: 01/25/17 14:49 Last Admin: 01/25/17 14:58 Dose: 400 mg Iohexol (Omnipaque 350 100 Ml) Confirm Administered Dose 350 mg .ROUTE .STK-MED ONE Stop: 01/25/17 16:43 Ipratropium [place] (Atrovent) 0.5 mg IH STAT STA Stop: 01/25/17 14:49 Last Admin: 01/25/17 14:58 Dose: 0.5 mg Ipratropium [place] (Atrovent) 0.5 mg IH STAT STA Stop: 01/25/17 14:50 Last Admin: 01/25/17 15:26 Dose: 0.5 mg Levalbuterol HCl (Xopenex) 1.25 mg IH STAT STA Stop: 01/25/17 14:49 Last Admin: 01/25/17 14:58 Dose: 1.25 mg Levalbuterol HCl (Xopenex) 1.25 mg IH STAT STA Stop: 01/25/17 14:49 Last Admin: 01/25/17 15:26 Dose: 1.25 mg Methylprednisolone (Solu-Medrol) 125 mg IVP STAT STA Stop: 01/25/17 14:49 Last Admin: 01/25/17 14:56 Dose: 125 mg Tramadol/Acetaminophen (Ultracet 37.5/325 Mg) 1 tab PO STAT STA Stop: 01/25/17 16:38 Last Admin: 01/25/17 16:50 Dose: 1 tab - Scribe Statement The provider has reviewed the documentation as recorded by the Gus Gorman Provider Scribe Attestation: All medical record entries made by the Scribe were at my direction and personally dictated by me. I have reviewed the chart and agree that the record accurately reflects my personal performance of the history, physical exam, medical decision making, and the department course for this patient. I have also personally directed, reviewed, and agree with the discharge instructions and disposition. Disposition/Present on Arrival - Present on Arrival Any Indicators Present on Arrival: No History of DVT/PE: No History of Uncontrolled Diabetes: No Urinary Catheter: No History of Decub. Ulcer: No History Surgical Site Infection Following: None - Disposition Have Diagnosis and Disposition been Completed?: Yes Diagnosis: Chest pain, COPD (chronic obstructive pulmonary disease) Disposition: HOSPITALIZED Disposition Time: 18:20 Patient Plan: Observation, Telemetry Condition: FAIR Discharge Instructions (ExitCare): Chest Pain (ED) Referrals: Augie Johnson DO [Primary Care Provider] - Follow up with primary
[2017-01-25 14:09] LABS: ADD MANUAL DIFF? NO; BASO # 0.02 K/mm3 (0.0-2.0); BASO % 0.3 % (0.0-3.0); EOS # 0.2 (0.0-0.7); EOS % 3.8 % (1.5-5.0); GRAN # 3.41 (1.4-6.5); GRAN % 55.9 % (50.0-68.0); HEMATOCRIT 36.5 % (36.0-48.0); LYMPH % 32.6 % (22.0-35.0); MEAN CELL VOLUME 88.8 fL (80.0-105.0); MEAN CORPUSCULAR HEMOGLOBIN 29.2 pg (25.0-35.0); MEAN CORPUSCULAR HGB CONC 32.9 g/dl (31.0-37.0); MEAN PLATELET VOLUME 9.3 fl (7.0-11.0); MONO # 0.5 (0.1-0.6); MONO % 7.4 % (1.0-6.0); PLATELET COUNT 365 10^3/uL (120.0-450.0); RED CELL DISTRIBUTION WIDTH 14.5 % (11.5-14.5); WHITE BLOOD COUNT 6.1 10^3/ul (4.5-11.0)
[2017-01-25 14:24] LABS: INR 0.94 (0.93-1.08)
[2017-01-25 14:37] LABS: D DIMER 0.73 mg/L FEU (0-0.50)
--- NOTE | 2017-01-25 14:47 | RAD ---
HISTORY: sob COMPARISON: Chest x-ray performed 11/30/16 TECHNIQUE: Chest, one view. FINDINGS: Examination limited by habitus. LUNGS: Bibasilar atelectasis. Please note that chest x-ray has limited sensitivity for the detection of pulmonary masses. PLEURA: No significant pleural effusion identified. No definite pneumothorax . CARDIOVASCULAR: Heart size appears top normal. Atherosclerotic calcifications. OSSEOUS STRUCTURES: No acute osseous abnormality identified. VISUALIZED UPPER ABDOMEN: Unremarkable. OTHER FINDINGS: None. IMPRESSION: Mild bibasilar atelectasis.
[2017-01-25] MEDS ORDERED: Levalbuterol 1.25 MG/3 ML Inhal Soln UD IH STA ×2 (14:48)
[2017-01-25] MEDS ORDERED: guaiFENesin 200 mg/10 ml Syrup UD PO STA (14:48)
[2017-01-25] MEDS ORDERED: Ipratropium 0.02% Inhal Soln (0.5 mg/2.5 ml) UD IH STA ×2 (14:48→14:49)
[2017-01-25 15:22] LABS: ALB/GLOB RATIO 1.1 (1.1-1.8); ALKALINE PHOSPHATASE 56 U/L (38-133); ALT/SGPT 17 U/L (7-56); AST/SGOT 30 U/L (15-39); BLOOD UREA NITROGEN 14 mg/dL (7-21); CALCIUM 9.2 mg/dL (8.4-10.5); CARBON DIOXIDE 29 mmol/L (21-33); CHLORIDE 101 mmol/L (98-107); GFR AFRICAN-AMERICAN > 60; GLUCOSE,RANDOM 98 mg/dL (70-110); LIPASE 84 U/L (23-300); POTASSIUM 4.3 mmol/L (3.6-5.0); SODIUM 133 mmol/L (132-148); TOTAL PROTEIN 6.8 g/dL (5.8-8.3)
[2017-01-25 15:32] LABS: URINE BILIRUBIN NEGATIVE (NEGATIVE); URINE BLOOD NEGATIVE (NEGATIVE); URINE GLUCOSE (UA) NEGATIVE (NEGATIVE); URINE KETONE NEGATIVE (NEGATIVE); URINE LEUKOCYTE ESTERASE NEGATIVE Leu/uL (NEGATIVE); URINE PROTEIN NEGATIVE mg/dL (<30 mg/dL); URINE UROBILINOGEN 0.2 E.U./dL (<1 E.U./dL)
[2017-01-25 15:33] LABS: URINE APPEARANCE CLEAR (CLEAR); URINE COLOR YELLOW (YELLOW)
[2017-01-25 16:10] LABS: BILIRUBIN,TOTAL 0.9 mg/dL (0.2-1.3); TROPONIN I < 0.01 ng/mL
[2017-01-25] MEDS ORDERED: TraMADol/Apap 37.5/325 mg Tab PO STA ×2 (16:37→20:40)
[2017-01-25] MEDS ORDERED: Iohexol 350 MG/100 ML VIAL ONE (16:42)
--- NOTE | 2017-01-25 18:04 | CT ---
PROCEDURE: CT Chest with contrast (Pulmonary Angiogram) HISTORY: shortness of breath chest pain COMPARISON: Comparison is made to the previous study dated 11/03/2015 TECHNIQUE: Axial computed tomography images were obtained of the chest in the pulmonary arterial phase of enhancement. Coronal and sagittal reformatted images were created and reviewed. Intravenous contrast dose: 100 mL Visipaque 320. Radiation dose: Total exam DLP = 655.34 mGy-cm. This CT exam was performed using one or more of the following dose reduction techniques: Automated exposure control, adjustment of the mA and/or kV according to patient size, and/or use of iterative reconstruction technique. FINDINGS: PULMONARY ARTERIES: Suboptimal opacification of the peripheral pulmonary arteries. The assessment is also somewhat limited due to patient's motion. No evidence of central pulmonary embolism. AORTA: No acute findings. No thoracic aortic aneurysm. The aortic arch is ectatic and tortuous. LUNGS: No evidence of pneumonia or mass lesion. Nonspecific ground-glass opacities seen. PLEURAL SPACES: Unremarkable. No effusion or pneuomothorax. HEART: The heart is mildly to moderately enlarged. LYMPH NODES: No evidence of significant lymphadenopathy. BONES, CHEST WALL: Unremarkable. No fracture or destructive lesion OTHER FINDINGS: Unremarkable. IMPRESSION: Suboptimal study. No evidence of central pulmonary embolus. Cardiomegaly. Nonspecific ground-glass opacities in the lungs may be related to pulmonary congestion.
--- NOTE | 2017-01-25 18:34 | CARD ---
APPROVED REPORT EKG Measurement Heart [id number] MI [id number] <Conclusion> Normal sinus rhythm Cannot rule out Anterior infarct, age undetermined Abnormal ECG
[2017-01-25] MEDS ORDERED: levoFLOXacin 750 mg in D5W 150 ML BAG IVPB STA (18:41)
[2017-01-25] MEDS ORDERED: Albuterol-Ipratrop 3 mg / 0.5 (3 ml) UD IH PRN (18:50)
[2017-01-26 06:33] LABS: ADD MANUAL DIFF? NO
[2017-01-26 06:51] LABS: BASO # 0.01 K/mm3 (0.0-2.0); BASO % 0.1 % (0.0-3.0); GRAN # 7.15 (1.4-6.5); GRAN % 81.9 % (50.0-68.0); HEMATOCRIT 33.5 % (36.0-48.0); LYMPH # 1.2 (1.2-3.4); LYMPH % 13.5 % (22.0-35.0); MEAN CELL VOLUME 87.7 fL (80.0-105.0); MEAN CORPUSCULAR HEMOGLOBIN 28.5 pg (25.0-35.0); MEAN CORPUSCULAR HGB CONC 32.5 g/dl (31.0-37.0); MEAN PLATELET VOLUME 8.8 fl (7.0-11.0); MONO # 0.4 (0.1-0.6); MONO % 4.5 % (1.0-6.0); PLATELET COUNT 372 10^3/uL (120.0-450.0); WHITE BLOOD COUNT 8.7 10^3/ul (4.5-11.0)
[2017-01-26 07:17] LABS: ALB/GLOB RATIO 1.1 (1.1-1.8); ALKALINE PHOSPHATASE 60 U/L (38-133); ALT/SGPT 19 U/L (7-56); AST/SGOT 29 U/L (15-39); BILIRUBIN,TOTAL 0.3 mg/dL (0.2-1.3); BLOOD UREA NITROGEN 17 mg/dL (7-21); CARBON DIOXIDE 24 mmol/L (21-33); CHLORIDE 101 mmol/L (98-107); GFR AFRICAN-AMERICAN > 60; GLUCOSE,RANDOM 114 mg/dL (70-110); POTASSIUM 5.3 mmol/L (3.6-5.0); SODIUM 134 mmol/L (132-148); TOTAL PROTEIN 7.5 g/dL (5.8-8.3)
[2017-01-26] MEDS ORDERED: Albuterol 0.5% Inhal Sol (2.5 mg/0.5 ml) UD IH SCH (08:00)
[2017-01-26] MEDS ORDERED: ALBUTEROL SULFATE 90 MCG IH SCH (08:00)
[2017-01-26] MEDS ORDERED: Levalbuterol 1.25 MG/3 ML Inhal Soln UD IH STA (08:28)
[2017-01-26] MEDS ORDERED: Sod Polystyrene Sulf 15 gm/60 ml Oral Susp PO ONE (08:35)
--- NOTE | 2017-01-26 08:39 | CON ---
DATE: 01/26/2017 CARDIOLOGY CONSULTATION HISTORY: The patient is a 61-year-old woman who presents with marked dyspnea. The patient has histo ry of asthma. She is complaining of pleuritic-like focal chest discomfort, worse on inspiration. This is why I was called for consultation. PAST MEDICAL HISTORY: Includes diabetes mellitus, hypertension, and severe asthma. No previous cardiac history is noted. SOCIAL HISTORY: She denies smoking. REVIEW OF SYSTEMS: A 14-point review of systems was reviewed. Her symptoms are predominantly dyspne a and pleuritic-like chest discomfort. Her previous cardiac evaluation was earlier this year, which revealed normal LV function. PHYSICAL EXAMINATION: VITAL SIGNS: Blood pressure is 107/84. The heart rate is in the 80s. The woman is mildly dyspneic. NECK: Negative JVD. LUNGS: Bilateral wheezing. HEART: Reveals S1, S2. EXTREMITIES: Without edema. EKG shows normal sinus rhythm with nonspecific ST-T changes. LABORATORIES: The troponin is negative x 1. BUN and creatinine are unremarkable. Hemoglobin is 10. 9. IMPRESSION: 1. Chest pain is secondary to work of breathing. 2. Acute bronchospasm. 3. No evidence for acute coronary syndrome. 4. Anemia. 5. Diabetes mellitus. 6. Hypertension. Given these findings, the patient's treatment should be directed at her bronchospasm. We will order bronchodilators today. We will obtain serial troponins. Tyrese Pink MD cc: [id number] TT: 01/26/2017 08:38:53 Confirmation # [id number] Dictation # [id number]
--- NOTE | 2017-01-26 08:44 | CP.PCM.CON ---
<Álvaro Noalsco - Last Filed: 01/26/17 14:13> History of Present Illness - History of Present Illness History of Present Illness: PGY4 GI Fellow Consult Note Patient is a 61yo female with PMHx significant for Asthma, Lymphoma, HTN, DM, CAD s/p PCI, CVA, essential tremor who presented to the ED with complaint of constipation, abdominal distention and dyspnea. She is breathless at time of exam and about to receive a nebulizer treatment. States that for the past week she has been suffering with SOB and productive cough. Symptoms continued to worsen daily and she became more dyspneic with exertion. Admits to fever of 103F 2 days prior to admission. Denies any sick contacts or recent antibiotic use. Separately, she has not had a BM in approximately one week. She has been admitted for similar issues in the past and suffers with chronic constipation for which she has been prescribed daily Miralax therapy. She also notes she is taking colace at home. Admits to compliance with this regimens. She has had CT scan of the A/P in October and November of this year along with colonoscopy one year ago; all of which have shown only diverticulosis. She has an ongoing neurologic work up for her tremor. PMHx: See HPI PSHx: x 2, Hysterectomy FHx: Discussed with patient and she denies any significant family history Social: Denies tobacco use, Sober for 4 years, Occasional marijuana use Endo: 11/2015 - Colonoscopy - Internal hemorrhoids, diverticulosis, 2 5mm polyps (fragments of polyp with adenomatous changes) Review of Systems - Constitutional Constitutional: Fatigue, Fever, Malaise. absent: Anorexia, Chills - EENT Eyes: absent: Change in Vision Nose/Mouth/Throat: absent: Sore Throat - Cardiovascular Cardiovascular: absent: Chest Pain, Dyspnea, Edema - Respiratory Respiratory: Dyspnea, Dyspnea on Exertion, Wheezing, Excessive Mucous Production - Gastrointestinal Gastrointestinal: Abdominal Pain, Change in Bowel Habits, Constipation, Cramping. absent: Diarrhea, Dyspepsia, Heartburn, Hematemesis, Loose Stools, Melena, Nausea, Vomiting - Genitourinary Genitourinary: absent: Dysuria, Urinary Frequency, Urinary Urgency - Musculoskeletal Musculoskeletal: absent: Back Pain, Neck Pain - Integumentary Integumentary: absent: New Lesions, Rash - Neurological Neurological: absent: Dizziness, Numbness, Focal Weakness - Psychiatric Psychiatric: absent: Anxiety, Depression - Endocrine Endocrine: absent: Polydipsia, Polyphagia, Polyuria - Hematologic/Lymphatic Hematologic: absent: Easy Bleeding, Easy Bruising, Lymphadenopathy Past Patient History - Infectious Disease Hx of Infectious Diseases: None - Past Medical History & Family History Past Medical History?: Yes - Past Social History Smoking Status: Never Smoked - CARDIAC Hx Cardiac Disorders: Yes Hx Hypertension: Yes - PULMONARY Hx Asthma: Yes - NEUROLOGICAL HX Cerebrovascular Accident: Yes (2012) - HEENT Hx HEENT Problems: Yes (eyeglasses) Hx Cataracts: Yes (b/l cataract sx) - HEMATOLOGICAL/ONCOLOGICAL Other/Comment: pt denies colon cancer - INTEGUMENTARY Hx Dermatological Problems: No - MUSCULOSKELETAL/RHEUMATOLOGICAL Hx Arthritis: Yes - GASTROINTESTINAL Hx Gastrointestinal Disorders: Yes Hx Gall Bladder Disease: Yes - GENITOURINARY/GYNECOLOGICAL Other/Comment: HYSTERECTOMY R/T FIBROIDS - PSYCHIATRIC Hx Depression: Yes Hx Emotional Abuse: No Hx Physical Abuse: No Hx Substance Use: Yes (quit 3 months ago marijuana) - SURGICAL HISTORY Hx Hysterectomy: Yes Other/Comment: X2, t and a, colon polyps removed 2015, exc L axillary mass x2 6 yrs ago - ANESTHESIA Hx Anesthesia: Yes Hx Anesthesia Reactions: No Hx Malignant Hyperthermia: No Meds Home Medications: Home Medication List Medication Instructions Recorded Confirmed Type Lubiprostone [Amitiza] 24 mcg PO BID #60 capsule 01/26/17 Rx Allergies/Adverse Reactions: Allergies Allergy/AdvReac Type Severity Reaction Status Date / Time fluoxetine HCl [From Prozac] Allergy Severe SWELLING Verified 01/25/17 13:43 Penicillins Allergy Severe SWELLING Verified 01/25/17 13:43 tomato Allergy Intermediate HIVES Verified 01/25/17 13:43 - Medications Medications: Current Medications Albuterol Sulfate (Albuterol 0.5% Inhal Monica (2.5 Mg/0.5 Ml) Ud) 2.5 mg IH Q4H [facility] Arformoterol Tartrate (Brovana) 15 mcg IH [id number] [facility] Aspirin (Ecotrin) 81 mg PO DAILY [facility] Budesonide (Pulmicort Respules) 0.5 mg IH [id number] [facility] Calcium Carbonate (Caltrate) 600 mg PO DAILY [facility] Docusate Sodium (Colace) 100 mg PO DAILY [facility] Folic Acid (Folic Acid) 1 mg PO DAILY [facility] Ibuprofen (Motrin Tab) 800 mg PO Q8H PRN PRN Reason: Pain, Mild (1-3) Levothyroxine Sodium (Synthroid) 25 mcg PO DAILY [facility] Loratadine (Claritin) 10 mg PO DAILY [facility] Montelukast Sodium (Singulair) 10 mg PO DAILY [facility] Non-Formulary Medication (Ketotifen Fumarate [Itchy Eye]) 1 drop OU BID [facility] Ondansetron HCl (Zofran Tab) 4 mg PO TID PRN PRN Reason: Nausea/Vomiting Polyethylene Glycol (Miralax) 17 gm PO BID [facility] Sertraline HCl (Zoloft) 50 mg PO DAILY [facility] Tramadol HCl (Ultram) 50 mg PO TID PRN PRN Reason: Pain, moderate (4-7) Trazodone HCl (Desyrel) 250 mg PO HS [facility] Physical Exam - Constitutional Appears: Non-toxic - Eye Exam Eye Exam: EOMI, PERRL - ENT Exam ENT Exam: Mucous Membranes Dry - Respiratory Exam Respiratory Exam: Rhonchi, Wheezes. absent: Clear to Auscultation Bilateral, Rales - Cardiovascular Exam Cardiovascular Exam: RRR, +S1, +S2 - GI/Abdominal Exam GI & Abdominal Exam: Distended, Normal Bowel Sounds, Soft, Tenderness. absent: Firm, Guarding, Organomegaly, Rigid - Extremities Exam Extremities exam: Positive for: normal inspection. Negative for: pedal edema - Neurological Exam Neurological exam: Alert, Oriented x3 Additional comments: resting tremor of right arm - Psychiatric Exam Psychiatric exam: Anxious - Skin Skin Exam: Dry, Warm Results - Vital Signs Recent Vital Signs: Last Vital Signs Temp 98.4 F 01/25/17 13:09 Pulse 80 01/26/17 01:15 Resp 18 01/26/17 01:15 BP 107/84 01/26/17 01:15 Pulse Ox 98 01/26/17 01:15 - Labs Result Diagrams: 01/26/17 05:30 01/26/17 05:30 Labs: Laboratory Results - last 24 hr 01/26/17 01/26/17 05:30 05:30 WBC 8.7 D RBC 3.82 Hgb 10.9 L Hct 33.5 L MCV 87.7 MCH 28.5 MCHC 32.5 RDW 14.0 Plt Count 372 MPV 8.8 Gran % 81.9 H Lymph % (Auto) 13.5 L [place] % (Auto) 4.5 Eos % (Auto) 0.0 L Baso % (Auto) 0.1 Gran # 7.15 H Lymph # 1.2 [place] # 0.4 Eos # 0.0 Baso # 0.01 Sodium 134 Potassium 5.3 H Chloride 101 Carbon Dioxide 24 Anion Gap 14 BUN 17 Creatinine 0.8 Est GFR ( Amer) > 60 Est GFR (Non-Af Amer) > 60 Random Glucose 114 H Calcium 10.0 Total Bilirubin 0.3 AST 29 ALT 19 Alkaline Phosphatase 60 Total Protein 7.5 Albumin 4.0 Globulin 3.5 Albumin/Globulin Ratio 1.1 Assessment & Plan - Assessment and Plan (Free Text) Assessment: Patient is a 61yo female with PMHx significant for Asthma, Lymphoma, HTN, DM, CAD s/p PCI who presented to the ED with complaint of constipation, abdominal distention and dyspnea. -Acute asthma exacerbation -Constipation Plan: -Recommend adherence to Miralax use, continue BID -Dulcolax 10mg PO once now -Tap water enema PRN -Will eRx Amitiza 24mcg PO BID on discharge, entered in chart -Encourage outpatient follow up -Diet as tolerated -Avoid opiate medications where possible - Date & Time Date: 01/26/17 Time: 08:40 <Francisco Javier Toure - Last Filed: 01/26/17 15:26> Meds - Medications Medications: Current Medications Albuterol Sulfate (Albuterol 0.5% Inhal Monica (2.5 Mg/0.5 Ml) Ud) 2.5 mg IH Q4H [facility] Arformoterol Tartrate (Brovana) 15 mcg IH [id number] [facility] Aspirin (Ecotrin) 81 mg PO DAILY [facility] Last Admin: 01/26/17 10:27 Dose: 81 mg Budesonide (Pulmicort Respules) 0.5 mg IH [id number] [facility] Calcium Carbonate (Caltrate) 600 mg PO DAILY [facility] Last Admin: 01/26/17 10:26 Dose: 600 mg Docusate Sodium (Colace) 100 mg PO DAILY [facility] Last Admin: 01/26/17 10:27 Dose: 100 mg Folic Acid (Folic Acid) 1 mg PO DAILY [facility] Last Admin: 01/26/17 10:27 Dose: 1 mg Ibuprofen (Motrin Tab) 800 mg PO Q8H PRN PRN Reason: Pain, Mild (1-3) Levothyroxine Sodium (Synthroid) 25 mcg PO DAILY [facility] Last Admin: 01/26/17 10:26 Dose: 25 mcg Loratadine (Claritin) 10 mg PO DAILY [facility] Last Admin: 01/26/17 10:27 Dose: 10 mg Montelukast Sodium (Singulair) 10 mg PO DAILY [facility] Last Admin: 01/26/17 10:27 Dose: 10 mg Non-Formulary Medication (Ketotifen Fumarate [Itchy Eye]) 1 drop OU BID [facility] Last Admin: 01/26/17 10:34 Dose: Not Given Ondansetron HCl (Zofran Tab) 4 mg PO TID PRN PRN Reason: Nausea/Vomiting Polyethylene Glycol (Miralax) 17 gm PO BID [facility] Last Admin: 01/26/17 10:28 Dose: 17 gm Sertraline HCl (Zoloft) 50 mg PO DAILY [facility] Last Admin: 01/26/17 10:26 Dose: 50 mg Tramadol HCl (Ultram) 50 mg PO TID PRN PRN Reason: Pain, moderate (4-7) Trazodone HCl (Desyrel) 250 mg PO [facility] Results - Vital Signs Recent Vital Signs: Last Vital Signs Temp 97.9 F 01/26/17 12:00 Pulse 80 01/26/17 12:00 Resp 20 01/26/17 12:00 BP 122/73 01/26/17 12:00 Pulse Ox 97 01/26/17 08:50 - Labs Result Diagrams: 01/26/17 05:30 01/26/17 05:30 Labs: Laboratory Results - last 24 hr 01/26/17 01/26/17 01/26/17 05:30 05:30 08:00 WBC 8.7 D RBC 3.82 Hgb 10.9 L Hct 33.5 L MCV 87.7 MCH 28.5 MCHC 32.5 RDW 14.0 Plt Count 372 MPV 8.8 Gran % 81.9 H Lymph % (Auto) 13.5 L [place] % (Auto) 4.5 Eos % (Auto) 0.0 L Baso % (Auto) 0.1 Gran # 7.15 H Lymph # 1.2 [place] # 0.4 Eos # 0.0 Baso # 0.01 Sodium 134 Potassium 5.3 H Chloride 101 Carbon Dioxide 24 Anion Gap 14 BUN 17 Creatinine 0.8 Est GFR ( Amer) > 60 Est GFR (Non-Af Amer) > 60 Random Glucose 114 H Calcium 10.0 Total Bilirubin 0.3 AST 29 ALT 19 Alkaline Phosphatase 60 Total Protein 7.5 Albumin 4.0 Globulin 3.5 Albumin/Globulin Ratio 1.1 TSH 3rd Generation 1.03 Attending/Attestation - Attestation I have personally seen and examined this patient.: Yes I have fully participated in the care of the patient.: Yes I have reviewed all pertinent clinical information: Yes Notes (Text): 01/26/17 15:25 61 year old female with h/o Asthma, Lymphoma, HTN, DM, CAD s/p PCI, tremor admitted with asthma exacerbation, also with constipation 1. Chronic constipation Plan: -failed miralax as outpatient -bowel regimen here includign enema/dulcolax -outpatient start amitiza 24 mcg po bid for chronic constipation and stop miralax -diet as tolerated -ok for discharge
[2017-01-26 08:49] VITALS: BMI 32.1
[2017-01-26 08:51] VITALS: O2SAT 97
[2017-01-26] MEDS ORDERED: Fluticasone-Salmeterol 250-50mcg Diskus IH SCH (10:00)
[2017-01-26] MEDS ORDERED: PROMETHAZINE DM PO SCH (10:00)
[2017-01-26] MEDS ORDERED: Levothyroxine 25 MCG TAB PO SCH (10:00)
[2017-01-26] MEDS ORDERED: POLYETHYLENE GLYCOL 3350 17 GM/Dose PACKET PO PRN (10:00)
[2017-01-26] MEDS: Bisacodyl 5mg EC Tab PO ONE ×2 (10:26→10:27)
[2017-01-26] MEDS: POLYETHYLENE GLYCOL 3350 17 GM/Dose PACKET PO SCH ×2 (10:28→17:25)
[2017-01-26] MEDS: KETOTIFEN FUMARATE OU SCH ×2 (10:34→17:24)
--- NOTE | 2017-01-26 11:34 | HP ---
I did a house call on her yesterday. She was extremely short of breath, had chest pain, was not feel ing well, could barely walk 2 steps with a walker before needing to sit down, I called 911. They too k her to the Emergency Room. She came in short of breath with chest pain, palpitations, dyspnea on e xertion, productive cough. It was green. She has also been constipated, urinary frequency. She is presently getting an enema. PAST MEDICAL HISTORY: Hypertension, diabetes, coronary artery disease with stents, asthma, very shor t of breath. She has eyeglasses, bilateral cataracts. She had a CVA with left-sided weakness. She has gallbladder disease, hysterectomy, fibroids. She has depression. She quit smoking marijuana 3 m onths ago. Hysterectomy, x 2, colon polyps, left axillary mass. FAMILY HISTORY: No known family history. SOCIAL HISTORY: Does not smoke cigarettes. She quit alcohol. She quit marijuana. ALLERGIES: SHE IS ALLERGIC TO PROZAC, PENICILLINS, AND TOMATOES. MEDICATIONS: She is on calcium, ProAir, Motrin, ketoprofen, MiraLax, Ultram, Colace, Claritin, Zofra n, Phenergan, Desyrel, Synthroid. She is refusing to take the Synthroid now. She thinks that is her whole problem. REVIEW OF SYSTEMS: She had fevers that she feels she has had. She is feeling hot. There is chest p ain. There is shortness of breath. There is dyspnea on exertion. She is wheezing. No nausea, vomi ting. PHYSICAL EXAMINATION: VITAL SIGNS: She has 98.4 temp, 88 pulse, 20 respiratory rate, 127/73 blood pressure, 95-98% O2 sat on room air. HEENT: Head is atraumatic, normocephalic. Extraocular muscles are intact. Pupils equal, reactive t o light. She is fairly well appearing at this time, more comfortable. Throat is moist. NECK: Supple. HEART: Regular rate. LUNGS: She had some wheezing when she came in, but now she is much better. ABDOMEN: Soft, mildly distended. She is going to get an enema. She is constipated. EXTREMITIES: No edema of the extremities, but she has tremors. She sees a neurologist. NEUROLOGIC: GCS is 15. Cranial nerves II-XII are grossly intact. SKIN: Warm and dry. Alert and oriented x 3. She is here for shortness of breath and chest pain. She had multiple tests. She has an 8.7 white co unt, 10.9 hemoglobin, 33.5, hematocrit with 372 platelets. D-dimer was 0.73. Chemistry: We have a 134 sodium, potassium has been high.. It is 5.3. It has been as low as 4.3, BUN 17, creatinine 0.8, GFR is greater than 60, sugar is 114, calcium is 10, AST is 29, ALT is 19, alk phos is 60, total pro tein 7.5. TSH is 1.03. Urine was clean. Chest x-ray was mild bibasilar atelectasis and Dr. Pink fe lt it was more from the lungs. GI said get an enema and let us get her moving. I am going to discharge her later today. She is going to go home on her medications plus prednisone. She is going to stop taking the Synthroid. We will check another TSH in a month and see if she nee ds it. The patient with shortness of breath with dyspnea or exertion. Augie Johnson DO cc: [id number] TT: 01/26/2017 11:33:53 tn
--- NOTE | 2017-01-26 11:48 | CON ---
DATE: 01/26/2017 We were asked by her attending physician, Dr. Johnson, to evaluate and treat this 61-year-old female w jose miguel was admitted to [facility] with severe asthma attack. The patient is on Advair Diskus at home as well as ProAir. She was on Singulair as well as cough syr up with codeine. HISTORY OF PRESENT ILLNESS: The patient was admitted after 24 hours of increasing shortness of breat h and wheezing. She was also complaining of chest discomfort. Those symptoms increased over the las t 24 hours. PAST MEDICAL HISTORY: Includes diabetes mellitus, hypertension, and severe persistent bronchial asth ma. Her symptoms are predominantly dyspnea and pleuritic-type chest discomfort on the right side. She florian d prior cardiac evaluation which revealed normal left ventricular function. SOCIAL HISTORY: She is nonsmoker, nondrinker. FAMILY HISTORY: Negative for inherited diseases. HOME MEDICATIONS: Listed by me in the first paragraph. REVIEW OF SYSTEMS: Conducted by reviewing all sources. RESPIRATORY: See history of present illness. CARDIOVASCULAR: She has pleuritic-type chest pain on the right side and palpitations. GASTROINTESTINAL: No nausea, vomiting or diarrhea. GENITOURINARY: No dysuria or hematuria. MUSCULOSKELETAL: No complaints. The rest of the systems were reviewed and found to be negative. PHYSICAL EXAMINATION: VITAL SIGNS: Blood pressure is 110/74, heart rate is 80, respiratory rate 22, oxygen saturation is 9 4 on nasal cannula. HEAD, EARS, NOSE AND THROAT: Normocephalic and atraumatic. LUNGS: Bilateral wheezing, prolonged expiration, moderate airway obstruction. CARDIOVASCULAR: S1, S2, no S3. GASTROINTESTINAL: Soft, nontender, no organomegaly. EXTREMITIES: No pedal edema. No cyanosis. SKIN: Clear with no skin rashes. NEUROLOGIC: No focal deficits. LABORATORY DATA: She had normal cardiac troponins. Her WBCs today are 8.7, hemoglobin of 10.9. Her potassium is 5.3. The rest of the electrolytes are normal. I cannot find an arterial blood gas whi ch is probably not done. ASSESSMENT AND PLAN: A 61-year-old with history of severe asthma admitted with exacerbation of above , treated with intravenous steroids and nebulizer treatments. Her condition improved slightly, but s he is still wheezing and has moderate airway obstruction. The treatment has to continue. I reviewed her CT scan of chest which is a suboptimal study. It is negative for pulmonary emboli, positive for cardiomegaly. It also showed nonspecific ground-glass opacities in both lungs, probably accumulatio n of secretions rather than pneumonia. The patient will be treated with all intense measures that I mentioned above. I would discuss this with Dr. Sandoval, Dr. Herrera. The patient should be a goo d candidate of trial of IL5 inhibitors, either subcutaneously or intravenously on a monthly basis due to severity of her disease. Koko Hackett MD cc: [id number] TT: 01/26/2017 11:47:41 Confirmation # [id number] Dictation # [id number] tn
--- NOTE | 2017-01-26 12:32 | DS ---
She is comfortable, resting in bed, doing a lot better than when she came in. She is on IV steroids. She is down to 30 mg. I am going to discharge her today and put her on prednisone 30 mg daily for 3 days, then 20 mg daily for 3 days, then 10 mg daily for 3 days. She is going to go home on her Caltrate, Claritin, Colace, Brovana, Desyrel, Ecotrin, folic acid, Zol oft, Zofran, Ultram. She is refusing to take her Synthroid. She wants to stop it and recheck a TSH in a month. She will take her Pulmicort, Motrin and MiraLax every day twice a day, the eyedrops. VITAL SIGNS: Temp 97.5, 99/62 blood pressure, 18 respiratory rate and 97% O2 sat on room air. She has an 8.7 white count, 10.9 hemoglobin, 33.5 hematocrit with 372 platelets. Sodium 134, potassi um 5.3, calcium is 10. AST is 29, ALT is 19, alk phos is 60, total protein 7.5. She is very happy to be going home. I will be following up on a house call in the next week. She wa s seen by GI and cardiology and the CAT scan showed nothing acute. She was here for shortness of breath, constipation. She will be on prednisone plus her regular medic ations. Augie Johnson DO cc: [id number] TT: 01/26/2017 12:31:05 en
[2017-01-26 14:25] VITALS: BP 122/73; PULSE 80; RESP 20; TEMP 97.9
[2017-01-26] MEDS ORDERED: Budesonide 0.5 mg/2 ml Inhal Susp UD IH SCH (20:00)
[2017-01-26] MEDS ORDERED: Arformoterol 15 mcg/2 ml Inh Sol IH SCH (20:00)
== END 2017-01-26 19:14 | disposition home or self-care (01) ==
LOC: ED 12:57 → ERH 18:18 → 2RNO 01-26 01:41
PROVIDERS: ADMIT Family Medicine; ATTEND Family Medicine
DX: J45.901 Unspecified asthma with (acute) exacerbation (principal); I25.10 Atherosclerotic heart disease of native coronary artery without angina pectoris; I69.354 Hemiplegia and hemiparesis following cerebral infarction affecting left non-dominant side; E11.9 Type 2 diabetes mellitus without complications; H26.9 Unspecified cataract; K59.09 Other constipation; D64.9 Anemia, unspecified; I11.9 Hypertensive heart disease without heart failure; I51.7 Cardiomegaly; G25.0 Essential tremor; R50.9 Fever, unspecified; K64.8 Other hemorrhoids; Z85.72 Personal history of non-Hodgkin lymphomas; Z95.5 Presence of coronary angioplasty implant and graft; Z90.710 Acquired absence of both cervix and uterus
CPT/HCPCS: 36415; 71010; 71275; 80053; 81003; 82550; 83615; 83690; 83735; 83880; 84443; 84484; 85025; 85378; 85610; 85730; 93005; 94640; 96374; 99285; G0378; J2930; Q9967